=== PATIENT | female | born 1930 | race Caucasian/White ===

== ENCOUNTER 2016-07-17 12:45 | Emergency (ER) | payer BC ==
[2016-07-17 12:58] VITALS: BP 180/112; PULSE 87; TEMP 97.7; BMI 48.9
--- NOTE | 2016-07-17 13:08 | PDOC ---
History of Present Illness - General Chief Complaint: Redness To Affected Area Stated Complaint: FACIAL & SCALP REDNESS Time Seen by Provider: 07/17/16 13:04 History Source: Patient, Old Records Exam Limitations: No Limitations - History of Present Illness Initial Comments: 07/17/16 13:04 85 y/o female with h/o HTN, atrial fibrillation-on anti-coagulation, and ? psoriasis who presents to the ED with complaints of an itching rash on her head and face. The lesion started as a small lesion on the top of her head in January of 2016 and progressively spread to the forehead and including the eyes. The patient has been seen by a game moderator who did a biopsy and prescribed her a cream that improved part of the rash. The patient presents to the ED today because she feels that her eyes are more swollen and the rash is itchier. She denies fevers, chills. There is no change in vision, eye pain. Past History - Past Medical History Allergies/Adverse Reactions: Allergies Allergy/AdvReac Type Severity Reaction Status Date / Time No Known Allergies Allergy Unverified 06/14/12 23:04 Home Medications: Ambulatory Orders Pantoprazole Sodium [Protonix -] 40 mg PO DAILY #0 tablet.ec 06/21/12 Rivaroxaban [Xarelto -] 20 mg PO 1800 #0 tablet 06/21/12 Atorvastatin Ca [Lipitor] 10 mg PO HS 07/17/16 Clindamycin [Cleocin -] 300 mg PO TID #21 capsule 07/17/16 Levothyroxine DAILY 07/17/16 Loratadine [Claritin] 10 mg PO DAILY 07/17/16 Metoprolol Succinate [Toprol Xl] 50 mg PO DAILY 07/17/16 Prednisone [Deltasone -] 40 mg PO UTDICT #8 tablet 07/17/16 Valsartan [Diovan] 80 mg PO BID 07/17/16 Cardiac Disorders: Yes (A-FIB) HTN: Yes Hypercholesterolemia: Yes - Surgical History Abdominal Surgery: Yes (c section x2) - Immunization History Td Vaccination: No - Psycho/Social/Smoking Cessation Hx Anxiety: No Suicidal Ideation: No Smoking Status: No Smoking History: Former smoker Have you smoked in the past 12 months: No Number of Cigarettes Smoked Daily: 0 Information on smoking cessation initiated: No Hx Alcohol Use: No Drug/Substance Use Hx: No Substance Use Type: None Hx Substance Use Treatment: No Review of Systems - Review of Systems Able to Perform ROS?: Yes Is the patient limited Nepali proficient: No Constitutional: No: Symptoms Reported HEENTM: No: Symptoms Reported Respiratory: No: Symptoms reported Cardiac (ROS): No: Symptoms Reported ABD/GI: No: Symptoms Reported : No: Symptoms Reported Musculoskeletal: No: Symptoms Reported Integumentary: Yes: See HPI, Rash *Physical Exam - Vital Signs Last Vital Signs Temp Pulse Resp BP Pulse Ox 97.7 F 87 16 180/112 97 07/17/16 12:47 07/17/16 12:47 07/17/16 12:47 07/17/16 12:47 07/17/16 12:47 - Physical Exam Comments: 07/17/16 13:18 GENERAL: Well developed, well nourished, obese. Awake and alert. No acute distress. HEENT: Normocephalic, atraumatic. PERRLA, EOMI. No conjunctival pallor. Sclera are non- icteric. Moist mucous membranes. Oropharynx is clear. NECK: Supple. Full ROM. No JVD. No lymphadenopathy. CARDIOVASCULAR: Regular rate and rhythm. No murmurs, rubs, or gallops. Distal pulses are 2+ and symmetric. PULMONARY: No evidence of respiratory distress. Lungs clear to auscultation bilaterally. No wheezing, rales or rhonchi. ABDOMINAL: Soft. Non-tender. Non-distended. No rebound or guarding. No organomegaly. Normoactive bowel sounds. MUSCULOSKELETAL Normal range of motion at all joints. No bony deformities or tenderness. No CVA tenderness. EXTREMITIES: No cyanosis. No clubbing. No edema. No calf tenderness. SKIN: Warm and dry. Normal capillary refill. No jaundice. There is a 3 x 4 cm firm lesion to the top of the scalp that appears scabbed and has scaling lesions. There is non-blanching surrounding erythema that extends down to her forehead. There is swelling to her upper and lower eyelids. NEUROLOGICAL: Alert, awake, appropriate. Cranial nerves 2-12 intact. Grossly non-focal exam. ED Treatment Course - LABORATORY CBC & Chemistry Diagram: 07/17/16 13:40 07/17/16 13:40 Medical Decision Making - Medical Decision Making 07/17/16 13:20 85 y/o female with HTN and a-fib with 6-7 month h/o progressively worsening rash to her scalp and face with eyelid swelling. DDx includes but is not limited to: malignancy, psoriasis, superimposed cellulitis, toxic/metabolic derangement. Plan: 1. Labs 2. Benadryl for itching 3. Steroids to decrease inflammation 4. Observe and re-evaluate 07/17/16 14:19 Addendum: The patient is feeling improved. Will treat for cellulitis with clindamycin 300 mg take 1 pill 3 times per day for 7 days. Will also prescribe prednisone for the swelling--40 mg daily for the next 4 days. I have advised the patient to follow-up with her primary care physician Dr. Melton this week. Please return to the emergency department if your symptoms persist, worsen, or new symptoms arise. *DC/Admit/Observation/Transfer Diagnosis at time of Disposition: Rash, Cellulitis, face - Discharge Dispostion Disposition: HOME Condition at time of disposition: Stable Admit: No - Prescriptions Prescriptions: Clindamycin [Cleocin -] 300 mg PO TID #21 capsule Prednisone [Deltasone -] 40 mg PO UTDICT #8 tablet - Referrals Referrals: Jayne Melton MD [Primary Care Provider] - - Patient Instructions Additional Instructions: You are being treated for an infection and an ALLERGIC reaction. You're being prescribed clindamycin 300 mg take 1 pill 3 times per day for 7 days. You're also being prescribed prednisone which is a steroid. Take 40 mg daily for the next 4 days. Please follow-up with your primary care physician Dr. Melton this week. Please return to the emergency department if your symptoms persist, worsen , or new symptoms arise.
[2016-07-17] MEDS ORDERED: CLINDAMYCIN HCL 150 MG CAPSULE (FP) PO ONE (13:23)
[2016-07-17] MEDS ORDERED: predniSONE 20 MG TABLET (UD) PO ONE (13:23)
[2016-07-17] MEDS ORDERED: diphenhydrAMINE HCL 25 MG CAPSULE (FP) PO ONE ×2 (13:23→13:31)
[2016-07-17] MEDS ORDERED: predniSONE 20 MG TABLET (UD) ONE (13:32)
[2016-07-17] MEDS ORDERED: CLINDAMYCIN HCL 150 MG CAPSULE (FP) ONE (13:33)
[2016-07-17 13:57] LABS: BASOPHIL 0.9 % (0-2.0); EOSINOPHIL 3.8 % (0-4.5); MCH 28.7 pg (25.7-33.7); MCHC 32.3 g/dl (32.0-36.0); MEAN CELL VOLUME 88.9 fl (80-96); MEAN PLT VOLUME 9.6 fl (7.5-11.1); NEUTROPHILS 66.6 % (42.8-82.8); PLATELET COUNT 200 K/MM3 (134-434); RDW 14.1 % (11.6-15.6); WHITE BLOOD COUNT 5.6 K/mm3 (4.0-10.8)
[2016-07-17 14:09] LABS: ANION GAP 10 (8-16); CALCIUM 9.8 mg/dl (8.4-10.2); CO2 25 mmol/L (22-28); GLUCOSE,RANDOM 149 mg/dl (74-106); MAGNESIUM 1.6 mg/dL (1.8-2.4)
[2016-07-17 15:08] LABS: ERYTHROCYTE SEDIMENTATION RATE 30 mm/hr (0-30)
== END 2016-07-17 14:29 | disposition home or self-care (01) ==
LOC: FER 12:45
DX: L03.211 Cellulitis of face (principal); I48.91 Unspecified atrial fibrillation; Z79.01 Long term (current) use of anticoagulants; I10 Essential (primary) hypertension; E78.00 Pure hypercholesterolemia, unspecified; Z87.891 Personal history of nicotine dependence
CPT/HCPCS: 36415; 80048; 83735; 84100; 85025; 85651; 99282-25

== ENCOUNTER 2017-05-25 08:50 | Inpatient (IN) | payer BC ==
[2017-05-25 09:47] LABS: BASO % 1.3 % (0-2.0); HEMATOCRIT 14.3 % (32.4-45.2); LYMPH % 16.3 % (8-40); MCH 26.7 pg (25.7-33.7); MCHC 29.5 g/dl (32.0-36.0); MEAN CELL VOLUME 90.4 fl (80-96); MEAN PLT VOLUME 9.2 fl (7.5-11.1); MONO % 11.9 % (3.8-10.2); NEUT % 67.5 % (42.8-82.8); PLATELET COUNT 218 K/MM3 (134-434); RBC 1.58 M/mm3 (3.60-5.2); RDW 22.6 % (11.6-15.6)
[2017-05-25 09:50] LABS: HEMOGLOBIN 4.2 GM/dL (10.7-15.3)
[2017-05-25 10:00] LABS: INR 1.26 (0.82-1.09); PROTHROMBIN TIME (PATIENT) 14.2 SEC (9.98-11.88)
[2017-05-25 10:06] LABS: VENOUS PC02 40.4 mmHg (38-52); VENOUS PH 7.37 (7.32-7.42); VENOUS PO2 21.3 mmHg (28-48)
[2017-05-25 10:16] LABS: ALBUMIN 2.7 g/dl (3.4-5.0); ANION GAP 12 (8-16); BLOOD UREA NITROGEN 31 mg/dL (7-18); CALCIUM 7.9 mg/dL (8.5-10.1); CHLORIDE 111 mmol/L (98-107); CO2 20 mmol/L (21-32); CREATININE 1.1 mg/dL (0.55-1.02); GLUCOSE,RANDOM 100 mg/dL (74-106); POTASSIUM 4.1 mmol/L (3.5-5.1); SGOT/AST 10 U/L (15-37); SGPT/ALT 8 U/L (12-78); SODIUM 143 mmol/L (136-145)
[2017-05-25 10:21] LABS: ALK PHOS 72 U/L (45-117); BILIRUBIN,TOTAL 0.5 mg/dL (0.2-1.0); TOT PROT 5.8 g/dl (6.4-8.2)
--- NOTE | 2017-05-25 10:23 | PDOC ---
History of Present Illness - General History Source: Patient Exam Limitations: No Limitations - History of Present Illness Initial Comments: 05/25/17 10:02 86-year-old female presents to the ED with generalized fatigue, weakness and mild shortness of breath with exertion since yesterday. Patient states has been eating and drinking and moving bowels along with urinating without difficulty but states has had chills also for the past few days. 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 Patient states was unable to make the appointment secondary to symptoms above. Patient states no recent change in diet, weight or medications. Timing/Duration: 24 hours, getting worse Severity: moderate Associated Symptoms: reports: fever/chills (chills), malaise, weakness <Adelina Ramos - Last Filed: 05/25/17 13:01> <Roger Ma - Last Filed: 05/25/17 18:12> - General Chief Complaint: Weakness Stated Complaint: WEAKNESS Time Seen by Provider: 05/25/17 09:13 Past History - Travel Traveled outside of the country in the last 30 days: No - Past Medical History Cancer: Yes (angiosarcoma) Cardiac Disorders: Yes (A-FIB) HTN: Yes Hypercholesterolemia: Yes - Surgical History Abdominal Surgery: Yes (c section x2) - Immunization History Td Vaccination: No - Suicide/Smoking/Psychosocial Hx Smoking Status: No Smoking History: Never smoked Have you smoked in the past 12 months: No Number of Cigarettes Smoked Daily: 0 Information on smoking cessation initiated: No Hx Alcohol Use: No Drug/Substance Use Hx: No Substance Use Type: None Hx Substance Use Treatment: No Patient Lives Alone: No Lives with/in: daughter <Adelina Ramos - Last Filed: 05/25/17 13:01> <Roger Ma - Last Filed: 05/25/17 18:12> - Past Medical History Allergies/Adverse Reactions: Allergies Allergy/AdvReac Type Severity Reaction Status Date / Time No Known Allergies Allergy Verified 05/25/17 09:08 Home Medications: Ambulatory Orders Pantoprazole Sodium [Protonix -] 40 mg PO DAILY #0 tablet.ec 06/21/12 Rivaroxaban [Xarelto -] 20 mg PO 1800 #0 tablet 06/21/12 Atorvastatin Ca [Lipitor] 10 mg PO HS 07/17/16 Levothyroxine 50 mg PO DAILY 07/17/16 Metoprolol Succinate [Toprol Xl] 50 mg PO DAILY 07/17/16 Valsartan [Diovan] 80 mg PO BID 07/17/16 Review of Systems - Review of Systems Able to Perform ROS?: Yes Constitutional: Yes: Weakness HEENTM: No: Symptoms Reported Respiratory: Yes: SOB with Exertion (mild) ABD/GI: Yes: Symptoms Reported. No: Nausea, Poor Fluid Intake, Vomiting, Abdominal cramping Musculoskeletal: No: Symptoms Reported Integumentary: No: Symptoms Reported Neurological: Yes: Weakness Hematologic/Lymphatic: Yes: See HPI <Adelina Ramos - Last Filed: 05/25/17 13:01> *Physical Exam - Vital Signs Last Vital Signs Temp Pulse Resp BP Pulse Ox 98.0 F 79 17 130/50 100 05/25/17 09:14 05/25/17 09:46 05/25/17 09:14 05/25/17 09:14 05/25/17 09:46 - Physical Exam General Appearance: Yes: Nourished, Appropriately Dressed. No: Apparent Distress Neck: positive: Supple. negative: Lymphadenopathy (R), Lymphadenopathy (L) Respiratory/Chest: positive: Lungs Clear, Normal Breath Sounds. negative: Respiratory Distress, Accessory Muscle Use Cardiovascular: positive: Regular Rhythm, Regular Rate. negative: Murmur Gastrointestinal/Abdominal: positive: Soft. negative: Tenderness Extremity: positive: Normal Capillary Refill, Pedal Edema (2+ nonpitting) Integumentary: positive: Dry, Warm, Pale, Other (noted large scaly hyperpigmented skin with scabbing to scalp extending to right eye and forehead. Firm and dry skin to face causing complete closure of right eye. The scalp with scabbing and soft /boggy texture) Neurologic: positive: Normal Mood/Affect, Motor Strength 5/5 <Adelina Ramos - Last Filed: 05/25/17 13:01> - Vital Signs Last Vital Signs Temp Pulse Resp BP Pulse Ox 98.0 F 76 18 118/47 100 05/25/17 11:07 05/25/17 11:07 05/25/17 13:20 05/25/17 11:07 05/25/17 13:20 <Francesca,Roger - Last Filed: 05/25/17 18:12> Heart Score/ECG Review - History History: Slightly suspicious - Electrocardiogram EKG: Normal - Age Age: >/= 65 - Risk Factors Risk Factors Heart Score: Yes Hx Hypertension Based on the list above the patient has:: 1-2 risk factors - Troponin Troponin: </= normal limit - Score Heart Score - Total: 3 - ECG Intrepretation Rhythm: Regular Rhythm (rate 77. Nonspecific ST and T-wave abnormality. No ST elevation or depression.) <Adelina Ramos - Last Filed: 05/25/17 13:01> ED Treatment Course - LABORATORY CBC & Chemistry Diagram: 05/25/17 09:35 05/25/17 09:35 - ADDITIONAL ORDERS Additional order review: 05/25/17 09:35 RBC 1.58 L D MCV 90.4 MCHC 29.5 L RDW 22.6 H D MPV 9.2 Neutrophils % 67.5 Lymphocytes % 16.3 D Monocytes % 11.9 H Eosinophils % 3.0 Basophils % 1.3 D - RADIOLOGY Radiology Studies Ordered: Category Date Time Status CHEST X-RAY PORTABLE* [RAD] Stat Radiology 05/25/17 09:14 Ordered <Adelina Ramos - Last Filed: 05/25/17 13:01> - LABORATORY CBC & Chemistry Diagram: 05/25/17 09:35 05/25/17 09:35 - ADDITIONAL ORDERS Additional order review: Laboratory Results 05/25/17 05/25/17 05/25/17 09:57 09:38 09:35 PT with INR INR VBG pH 7.37 POC VBG pCO2 40.4 POC VBG pO2 21.3 L Mixed VBG HCO3 22.7 Sodium Potassium Chloride Carbon Dioxide Anion Gap BUN Creatinine Creat Clearance w eGFR Random Glucose Lactic Acid 1.7 Calcium Magnesium Total Bilirubin AST ALT Alkaline Phosphatase Creatine Kinase Troponin I Total Protein Albumin Blood Type O POSITIVE Antibody Screen Negative Crossmatch See Detail 05/25/17 05/25/17 09:35 09:35 PT with INR 14.20 H INR 1.26 H D VBG pH POC VBG pCO2 POC VBG pO2 Mixed VBG HCO3 Sodium 143 Potassium 4.1 Chloride 111 H Carbon Dioxide 20 L Anion Gap 12 BUN 31 H Creatinine 1.1 H Creat Clearance w eGFR 47.32 Random Glucose 100 Lactic Acid Calcium 7.9 L Magnesium 2.0 Total Bilirubin 0.5 AST 10 L ALT 8 L Alkaline Phosphatase 72 Creatine Kinase 25 L Troponin I < 0.02 Total Protein 5.8 L Albumin 2.7 L Blood Type Antibody Screen Crossmatch 05/25/17 09:35 RBC 1.58 L D MCV 90.4 MCHC 29.5 L RDW 22.6 H D MPV 9.2 Neutrophils % 67.5 Lymphocytes % 16.3 D Monocytes % 11.9 H Eosinophils % 3.0 Basophils % 1.3 D - Medications Given in the ED: ED Medications Discontinued Medications Generic Name Dose Route Start Last Admin Trade Name Freq PRN Reason Stop Dose Admin Furosemide 40 mg 05/25/17 11:18 05/25/17 14:19 Lasix Injection - IVPUSH 05/25/17 11:19 40 mg ONCE ONE Administration Metoprolol Succinate 50 mg 05/25/17 11:14 05/25/17 11:20 Toprol Xl - PO 05/25/17 11:15 Not Given DAILY ONE <Roger Ma - Last Filed: 05/25/17 18:12> Medical Decision Making - Medical Decision Making 05/25/17 10:14 Patient with complains of generalized fatigue and weakness and exhaustion accompanied mild shortness of breath on exertion. 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 Due to patient's history of present illness and complaints patient will be ruled out for sepsis versus anemia. 05/25/17 12:17 Laboratory Tests 05/25/17 05/25/17 05/25/17 09:35 09:35 09:35 WBC 5.0 D Hgb 4.2 L* D Hct 14.3 L MCV 90.4 MCHC 29.5 L RDW 22.6 H D Plt Count 218 Monocytes % 11.9 H PT with INR 14.20 H INR 1.26 H D VBG pH POC VBG pCO2 POC VBG pO2 Sodium 143 Potassium 4.1 Chloride 111 H Carbon Dioxide 20 L Anion Gap 12 BUN 31 H Creatinine 1.1 H Creat Clearance w eGFR 47.32 Random Glucose 100 Lactic Acid Calcium 7.9 L Magnesium 2.0 AST 10 L ALT 8 L Troponin I < 0.02 Total Protein 5.8 L Albumin 2.7 L 05/25/17 05/25/17 09:35 09:38 WBC Hgb Hct MCV MCHC RDW Plt Count Monocytes % PT with INR INR VBG pH 7.37 POC VBG pCO2 40.4 POC VBG pO2 21.3 L Sodium Potassium Chloride Carbon Dioxide Anion Gap BUN Creatinine Creat Clearance w eGFR Random Glucose Lactic Acid 1.7 Calcium Magnesium AST ALT Troponin I Total Protein Albumin Patient ordered for 1 unit of packed cells and case discussed with Dr. Robb who admitted patient to [facility] inpatient. <Adelina Ramos - Last Filed: 05/25/17 13:01> - Medical Decision Making 05/25/17 18:12 I reviewed the case of the mid-level practitioner and was available for consultation while in the emergency department <Roger Ma - Last Filed: 05/25/17 18:12> *DC/Admit/Observation/Transfer - Discharge Dispostion Admit: Yes <Adelina Ramos - Last Filed: 05/25/17 13:01> <Roger Ma - Last Filed: 05/25/17 18:12> Diagnosis at time of Disposition: Symptomatic anemia, Blood transfusion during current hospitalisation
--- NOTE | 2017-05-25 11:07 | HP ---
Admitting History and Physical - Primary Care Physician PCP: Jayne Melton - Admission Chief Complaint: came in for shortness of breath and fatigue History of Present Illness: today patient was supposed to go to [facility] for chemotherapy but came to ER bc of extreme shortness of breath,fatigue h/h in Er 4.2 History Source: Family Member - Past Medical History Cardiovascular: Yes: AFIB Heme/Onc: Yes: Other (angiosarcoma) Endocrine: Yes: Hypothyroidism - Smoking History Smoking history: Never smoked Have you smoked in the past 12 months: No Aproximately how many cigarettes per day: 0 - Alcohol/Substance Use Hx Alcohol Use: No Home Medications - Allergies Allergies/Adverse Reactions: Allergies Allergy/AdvReac Type Severity Reaction Status Date / Time No Known Allergies Allergy Verified 05/25/17 09:08 - Home Medications Home Medications: Ambulatory Orders Pantoprazole Sodium [Protonix -] 40 mg PO DAILY #0 tablet.ec 06/21/12 Rivaroxaban [Xarelto -] 20 mg PO 1800 #0 tablet 06/21/12 Atorvastatin Ca [Lipitor] 10 mg PO HS 07/17/16 Levothyroxine 50 mg PO DAILY 07/17/16 Metoprolol Succinate [Toprol Xl] 50 mg PO DAILY 07/17/16 Valsartan [Diovan] 80 mg PO BID 07/17/16 Review of Systems - Review of Systems HENT: reports: Other (hard of hearing) Physical Examination Vital Signs: Vital Signs Temperature 98.0 F 05/25/17 09:14 Pulse Rate 79 05/25/17 09:46 Respiratory Rate 17 05/25/17 09:14 Blood Pressure 130/50 05/25/17 09:14 O2 Sat by Pulse Oximetry (%) 100 05/25/17 09:46 Constitutional: Yes: Calm HENT: Yes: Other (periorbital and facial swelling with bluish discoloration eyes closed) Cardiovascular: Yes: Regular Rate and Rhythm, S1, S2 Respiratory: Yes: CTA Bilaterally Gastrointestinal: Yes: Normal Bowel Sounds, Soft Edema: Yes Edema: LLE: 2+, RLE: 2+ Neurological: Yes: Alert, Oriented Labs: CBC, BMP 05/25/17 09:35 05/25/17 09:35 Problem List - Problems (1) Angiosarcoma of face Assessment/Plan: followed at [facility] for chemotherapy Code(s): C49.0 - MALIG NEOPLM OF CONN AND SOFT TISSUE OF HEAD, FACE AND NECK (2) Blood transfusion during current hospitalisation Assessment/Plan: transfuse prbc slowly- will need about 3 units followed by lasix 40mg iv after prbc repeat cbc later today and tmw in AM Code(s): KXN4167 - (3) Symptomatic anemia Assessment/Plan: tranfusion iron panel heme eval Code(s): D64.9 - ANEMIA, UNSPECIFIED (4) Hypothyroid Assessment/Plan: synthroid check tsh Code(s): E03.9 - HYPOTHYROIDISM, UNSPECIFIED (5) Edema Assessment/Plan: lasix check doppler renal/bladder ultrasound Code(s): R60.9 - EDEMA, UNSPECIFIED (6) Atrial fibrillation Assessment/Plan: toprol and xarelto Code(s): I48.91 - UNSPECIFIED ATRIAL FIBRILLATION (7) Renal insufficiency Assessment/Plan: renal and bladder ultrasound lasix Code(s): N28.9 - DISORDER OF KIDNEY AND URETER, UNSPECIFIED
[2017-05-25] MEDS ORDERED: FUROSEMIDE 40 MG/4 ML INJECTABLE VIAL IVPUSH ONE (11:18)
--- NOTE | 2017-05-25 12:37 | EKG ---
Test Reason : Blood Pressure : / mmHG Vent. Rate : 077 BPM Atrial Rate : 077 BPM P-R Int : 000 ms QRS Dur : 094 ms QT Int : 384 ms P-R-T Axes : 000 -04 049 degrees QTc Int : 434 ms POOR DATA QUALITY, INTERPRETATION MAY BE ADVERSELY AFFECTED NORMAL SINUS RHYTHM NONSPECIFIC ST AND T WAVE ABNORMALITY ABNORMAL ECG WHEN COMPARED WITH ECG OF 21-JUN-2012 09:12, JUNCTIONAL RHYTHM HAS REPLACED SINUS RHYTHM QRS DURATION HAS DECREASED NONSPECIFIC T WAVE ABNORMALITY NOW EVIDENT IN INFERIOR LEADS NONSPECIFIC T WAVE ABNORMALITY, WORSE IN LATERAL LEADS Confirmed by MIKEL MENJIVAR MD ([id number]) on 05/25/2017 12:37:28 PM Referred By: Confirmed By:MIKEL MENJIVAR MD
[2017-05-25] MEDS ORDERED: FUROSEMIDE 40 MG/4 ML INJECTABLE VIAL ONE (14:16)
[2017-05-25 16:31] LABS: URINE APPEARANCE SLCLOUDY; URINE BILIRUBIN NEGATIVE (NEGATIVE); URINE BLOOD NEGATIVE (NEGATIVE); URINE COLOR STRAW; URINE GLUCOSE (UA) NEGATIVE (NEGATIVE); URINE KETONE NEGATIVE (NEGATIVE); URINE LEUK ESTERASE 3+ (NEGATIVE); URINE NITRITE NEGATIVE (NEGATIVE); URINE PROTEIN NEGATIVE (NEGATIVE); URINE UROBILINOGEN NEGATIVE mg/dL (0.2-1.0)
--- NOTE | 2017-05-25 16:49 | CONSULT ---
Consult Consult Specialty:: Anemia - History of Present Illness History of Present Illness: Presented with fatigue and SOB. Hx of angiosarcoma. f/u at [facility] diagnosed in 05/2016 s/p multiple regimens ( doxil, sorafenib, Taxol and again doxil). Today, scheduled for Keytruda. and the plan for concurrent Immuno/Radiotherapy - History Source History Provided By: Family Member - Past Medical History Cardio/Vascular: Yes: AFIB Endocrine: Yes: Hypothyroidism - Alcohol/Substance Use Hx Alcohol Use: No - Smoking History Smoking history: Never smoked Have you smoked in the past 12 months: No Aproximately how many cigarettes per day: 0 Home Medications - Allergies Allergies/Adverse Reactions: Allergies Allergy/AdvReac Type Severity Reaction Status Date / Time No Known Allergies Allergy Verified 05/25/17 09:08 - Home Medications Home Medications: Ambulatory Orders Pantoprazole Sodium [Protonix -] 40 mg PO DAILY #0 tablet.ec 06/21/12 Rivaroxaban [Xarelto -] 20 mg PO 1800 #0 tablet 06/21/12 Atorvastatin Ca [Lipitor] 10 mg PO HS 07/17/16 Levothyroxine 50 mg PO DAILY 07/17/16 Metoprolol Succinate [Toprol Xl] 50 mg PO DAILY 07/17/16 Valsartan [Diovan] 80 mg PO BID 07/17/16 Physical Exam Vital Signs: Vital Signs Temperature 98.0 F 05/25/17 11:07 Pulse Rate 76 05/25/17 11:07 Respiratory Rate 18 05/25/17 11:07 Blood Pressure 118/47 05/25/17 11:07 O2 Sat by Pulse Oximetry (%) 100 05/25/17 11:07 Constitutional: Yes: No Distress Eyes: Yes: Conjunctiva Clear HENT: Yes: Atraumatic, Other (huge sarcomatous lesion is) Neck: Yes: Supple, Trachea Midline Cardiovascular: Yes: Regular Rate and Rhythm Respiratory: Yes: Regular, CTA Bilaterally Gastrointestinal: Yes: Normal Bowel Sounds, Soft Labs: CBC, BMP 05/25/17 09:35 05/25/17 09:35 Assessment/Plan Angiosarcoma ( type unknown) multiple chemotherapies prior to start Keytruda today Now being admitted for symptomatic anemia. She undergoes intermittent PRBCs at her Oncologist office in [place]. transfuse prbc directed by CBC. once hgb stabilized, likely could be discharged to continue f/u at [place]/ [facility] will follow
[2017-05-25 17:47] LABS: EPI CELLS RARE /HPF (FEW); URINE HYALINE CAST 2 /lpf
[2017-05-25] MEDS: RIVAROXABAN 20 MG TABLET PO SCH (18:38)
[2017-05-25 18:51] VITALS: BMI 44.3
[2017-05-25] MEDS ORDERED: INSULIN (NOVOLOG) ASPART 100 UNITS/ML 10ML VIAL ONE (19:20)
[2017-05-25 20:55] LABS: BASO % 0.8 % (0-2.0); EOS % 1.6 % (0-4.5); HEMATOCRIT 16.3 % (32.4-45.2); LYMPH % 10.5 % (8-40); MCH 26.3 pg (25.7-33.7); MCHC 30.6 g/dl (32.0-36.0); MEAN PLT VOLUME 9.4 fl (7.5-11.1); MONO % 9.9 % (3.8-10.2); NEUT % 77.2 % (42.8-82.8); PLATELET COUNT 217 K/MM3 (134-434); RDW 22.8 % (11.6-15.6); WHITE BLOOD COUNT 6.8 K/mm3 (4.0-10.0)
[2017-05-25] MEDS ORDERED: FUROSEMIDE 40 MG/4 ML INJECTABLE VIAL IVPUSH SCH (21:06)
[2017-05-25] MEDS: ATORVASTATIN CA 10 MG TABLET (FP) PO SCH (21:42)
[2017-05-26] MEDS ORDERED: FUROSEMIDE 40 MG/4 ML INJECTABLE VIAL IVPUSH ONE (03:30)
[2017-05-26] MEDS: LEVOTHYROXINE NA 50 MCG TABLET (FP) PO SCH (06:11)
--- NOTE | 2017-05-26 09:50 | PN ---
Physical Exam: SUBJECTIVE: Patient seen and examined. She is comfortable sitting in chair. She has no complaints. She denies CP, SOB. OBJECTIVE: Vital Signs Period Temp Pulse Resp BP Sys/Puente Pulse Ox Last 24 Hr 97.1 F-98.0 F 76-98 18-20 118-149/41-71 96-100 GENERAL: The patient is awake, alert, and fully oriented, in no acute distress. LUNGS: Breath sounds equal, clear to auscultation bilaterally, no wheezes, no crackles, no accessory muscle use. HEART: Regular rate and rhythm, S1, S2 without murmur, rub or gallop. ABDOMEN: Obese, soft, nontender, nondistended, normoactive bowel sounds, no guarding, no rebound, no hepatosplenomegaly, no masses. EXTREMITIES: 2+ edema. Laboratory Results - last 24 hr 05/25/17 05/25/17 05/25/17 09:35 09:35 09:35 WBC 5.0 D RBC 1.58 L D Hgb 4.2 L* D Hct 14.3 L MCV 90.4 MCH 26.7 D MCHC 29.5 L RDW 22.6 H D Plt Count 218 MPV 9.2 Neutrophils % 67.5 Lymphocytes % 16.3 D Monocytes % 11.9 H Eosinophils % 3.0 Basophils % 1.3 D PT with INR 14.20 H INR 1.26 H D VBG pH POC VBG pCO2 POC VBG pO2 Mixed VBG HCO3 Sodium 143 Potassium 4.1 Chloride 111 H Carbon Dioxide 20 L Anion Gap 12 BUN 31 H Creatinine 1.1 H Creat Clearance w eGFR 47.32 Random Glucose 100 Lactic Acid Calcium 7.9 L Magnesium 2.0 Total Bilirubin 0.5 AST 10 L ALT 8 L Alkaline Phosphatase 72 Creatine Kinase 25 L Troponin I < 0.02 Total Protein 5.8 L Albumin 2.7 L Urine Color Urine Appearance Urine pH Ur Specific [place] Urine Protein Urine Glucose (UA) Urine Ketones Urine Blood Urine Nitrite Urine Bilirubin Urine Urobilinogen Ur Leukocyte Esterase Urine WBC (Auto) Urine RBC (Auto) Ur Epithelial Cells Hyaline Casts Blood Type Antibody Screen Crossmatch 05/25/17 05/25/17 05/25/17 09:35 09:38 09:57 WBC RBC Hgb Hct MCV MCH MCHC RDW Plt Count MPV Neutrophils % Lymphocytes % Monocytes % Eosinophils % Basophils % PT with INR INR VBG pH 7.37 POC VBG pCO2 40.4 POC VBG pO2 21.3 L Mixed VBG HCO3 22.7 Sodium Potassium Chloride Carbon Dioxide Anion Gap BUN Creatinine Creat Clearance w eGFR Random Glucose Lactic Acid 1.7 Calcium Magnesium Total Bilirubin AST ALT Alkaline Phosphatase Creatine Kinase Troponin I Total Protein Albumin Urine Color Urine Appearance Urine pH Ur Specific [place] Urine Protein Urine Glucose (UA) Urine Ketones Urine Blood Urine Nitrite Urine Bilirubin Urine Urobilinogen Ur Leukocyte Esterase Urine WBC (Auto) Urine RBC (Auto) Ur Epithelial Cells Hyaline Casts Blood Type O POSITIVE Antibody Screen Negative Crossmatch See Detail 05/25/17 05/25/17 05/25/17 15:46 19:50 23:00 WBC 6.8 D RBC 1.90 L D Hgb 5.0 L* D Hct 16.3 L MCV 86.0 MCH 26.3 MCHC 30.6 L RDW 22.8 H Plt Count 217 MPV 9.4 Neutrophils % 77.2 Lymphocytes % 10.5 D Monocytes % 9.9 Eosinophils % 1.6 Basophils % 0.8 PT with INR INR VBG pH POC VBG pCO2 POC VBG pO2 Mixed VBG HCO3 Sodium Potassium Chloride Carbon Dioxide Anion Gap BUN Creatinine Creat Clearance w eGFR Random Glucose Lactic Acid Calcium Magnesium Total Bilirubin AST ALT Alkaline Phosphatase Creatine Kinase Troponin I Total Protein Albumin Urine Color Straw Urine Appearance Slcloudy Urine pH 5.0 Ur Specific [place] 1.006 Urine Protein Negative Urine Glucose (UA) Negative Urine Ketones Negative Urine Blood Negative Urine Nitrite Negative Urine Bilirubin Negative Urine Urobilinogen Negative Ur Leukocyte Esterase 3+ H Urine WBC (Auto) 116 Urine RBC (Auto) 3 Ur Epithelial Cells Rare Hyaline Casts 2 Blood Type O POSITIVE Antibody Screen Negative Crossmatch Active Medications Generic Name Dose Route Start Last Admin Trade Name Freq PRN Reason Stop Dose Admin Atorvastatin Calcium 10 mg 05/25/17 22:00 05/25/17 21:42 Lipitor - PO 10 mg HS LENORA Administration Levothyroxine Sodium 50 mcg 05/26/17 07:00 05/26/17 06:11 Synthroid - PO 50 mcg DAILY@0700 LENORA Administration Metoprolol Succinate 50 mg 05/26/17 10:00 Toprol Xl - PO DAILY LENORA Pantoprazole Sodium 40 mg 05/26/17 10:00 Protonix - PO DAILY LENORA Rivaroxaban 20 mg 05/25/17 18:00 05/25/17 18:38 Xarelto - PO 20 mg DAILY@1800 LENORA Administration ASSESSMENT/PLAN: 1. 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 Hypothyroidism - Continue Synthroid 4. Bilateral leg edema - Given Lasix - Venous dopplers of legs ordered 5. History of atrial fibrillation - Currently in sinuns rhythm - Continue Toprol XL, Xarelto 6. Stage 3 CKD - Creatinine 1.1 yesterday (1.0 07/2016) 7. HTN - Continue Toprol XL 8. Hyperlipidemia - Continue Lipitor Visit type - Emergency Visit Emergency Visit: Yes ED Registration Date: 05/25/17 Care time: The patient presented to the Emergency Department on the above date and was hospitalized for further evaluation of their emergent condition. - New Patient This patient is new to me today: Yes Date on this admission: 05/26/17 - Critical Care Critical Care patient: No - Discharge Referral Referred to [facility] Med P.C.: No
[2017-05-26] MEDS: PANTOPRAZOLE 40 MG TABLET (FP) PO SCH (10:32)
[2017-05-26 10:43] LABS: BASO % 0.9 % (0-2.0); EOS % 1.1 % (0-4.5); HEMATOCRIT 22.9 % (32.4-45.2); HEMOGLOBIN 7.4 GM/dL (10.7-15.3); LYMPH % 9.7 % (8-40); MCH 27.5 pg (25.7-33.7); MCHC 32.2 g/dl (32.0-36.0); MEAN CELL VOLUME 85.5 fl (80-96); MEAN PLT VOLUME 9.5 fl (7.5-11.1); MONO % 11.7 % (3.8-10.2); NEUT % 76.6 % (42.8-82.8); PLATELET COUNT 226 K/MM3 (134-434); RBC 2.68 M/mm3 (3.60-5.2); WHITE BLOOD COUNT 8.2 K/mm3 (4.0-10.0)
[2017-05-26 11:05] LABS: ANION GAP 10 (8-16); BLOOD UREA NITROGEN 29 mg/dL (7-18); CALCIUM 8.4 mg/dL (8.5-10.1); CHLORIDE 107 mmol/L (98-107); CHOLESTEROL 81 mg/dL (50-200); CO2 24 mmol/L (21-32); CREATININE 1.2 mg/dL (0.55-1.02); GLUCOSE,RANDOM 109 mg/dL (74-106); HDL CHOLESTEROL 32 mg/dL (40-60); LDL CHOLESTEROL (ONLY SJRH) 41 mg/dL (5-100); MAGNESIUM 1.6 mg/dL (1.8-2.4); PHOSPHOROUS 3.3 mg/dL (2.5-4.9); SGOT/AST 9 U/L (15-37); SGPT/ALT 8 U/L (12-78); SODIUM 141 mmol/L (136-145); TRIGLYCERIDES 130 mg/dL (35-160)
[2017-05-26 11:15] LABS: ALK PHOS 75 U/L (45-117); BILIRUBIN,TOTAL 1.1 mg/dL (0.2-1.0)
--- NOTE | 2017-05-26 17:12 | PN ---
Progress Note (short form) - Note Progress Note: patient seen and examined denies any complaints Last Vital Signs Temp Pulse Resp BP Pulse Ox 97.7 F 83 20 118/45 96 05/26/17 20:00 05/26/17 20:00 05/26/17 20:00 05/26/17 20:00 05/26/17 13:59 Cor: RSR, No murmurs, No gallops Lungs: Clear to P&A Abd: Soft, Normal bowel sounds, No organomegaly Ext:No significant edema Abnormal Lab Results 05/25/17 05/26/17 05/26/17 09:57 10:01 10:01 RBC 2.68 L D Hgb 7.4 L D Hct 2 Meal intake past 72 hours Breakfast 50% Lunch 50% Supper 25% Supper 50% a2.9 L D RDW 19.0 H D Monocytes % 11.7 H BUN 29 H Creatinine 1.2 H Random Glucose 109 H Calcium 8.4 L Magnesium 1.6 L Total Bilirubin 1.1 H D AST 9 L ALT 8 L Total Protein 6.0 L Albumin 3.0 L HDL Cholesterol Crossmatch See Detail 05/26/17 10:01 RBC Hgb Hct RDW Monocytes % BUN Creatinine Random Glucose Calcium Magnesium Total Bilirubin AST ALT Total Protein Albumin HDL Cholesterol 32 L Crossmatch a/p 86 y/o Angiosarcoma multiple chemotherapies prior to start Keytruda Now being admitted for symptomatic anemia. She undergoes intermittent PRBCs at her Oncologist office in [place]. transfuse prbc directed by CBC. once hgb stabilized, likely could be discharged to continue f/u at [place]/ [facility] patient interested in transferring care locally ---contact nos. given
[2017-05-26] MEDS: RIVAROXABAN 20 MG TABLET PO SCH (18:18)
[2017-05-26] MEDS: ATORVASTATIN CA 10 MG TABLET (FP) PO SCH (21:15)
[2017-05-27] MEDS: LEVOTHYROXINE NA 50 MCG TABLET (FP) PO SCH (06:18)
[2017-05-27 08:06] LABS: SERUM IRON SATURATION 15 % (15-55); TOTAL IRON BINDING CAPACITY 369 ug/dL (250-450); UIBC 312 ug/dL (118-369)
[2017-05-27 08:18] LABS: CHLORIDE 108 mmol/L (98-107); POTASSIUM 3.7 mmol/L (3.5-5.1); SODIUM 141 mmol/L (136-145)
[2017-05-27 08:23] LABS: BASO % 0.7 % (0-2.0); EOS % 1.3 % (0-4.5); HEMATOCRIT 20.2 % (32.4-45.2); LYMPH % 9.9 % (8-40); MCH 27.8 pg (25.7-33.7); MCHC 32.4 g/dl (32.0-36.0); MEAN CELL VOLUME 85.9 fl (80-96); NEUT % 77.1 % (42.8-82.8); PLATELET COUNT 157 K/MM3 (134-434); RBC 2.36 M/mm3 (3.60-5.2); RDW 18.5 % (11.6-15.6); WHITE BLOOD COUNT 6.9 K/mm3 (4.0-10.0)
[2017-05-27 08:28] LABS: ANION GAP 7 (8-16); BLOOD UREA NITROGEN 27 mg/dL (7-18); CALCIUM 8.2 mg/dL (8.5-10.1); CO2 26 mmol/L (21-32); CREATININE 1.1 mg/dL (0.55-1.02); GLUCOSE,RANDOM 110 mg/dL (74-106)
[2017-05-27 08:35] LABS: ADD RBC MORPHOLOGY YES; HEMOGLOBIN 6.6 GM/dL (10.7-15.3)
--- NOTE | 2017-05-27 09:51 | PN ---
Physical Exam: SUBJECTIVE: Patient seen and examined. She is comfortable. She is agitated at times. OBJECTIVE: Vital Signs Period Temp Pulse Resp BP Sys/Puente Pulse Ox Last 24 Hr 97.4 F-98.4 F 77-89 20-20 117-136/45-75 96-96 GENERAL: The patient is awake, alert, and fully oriented, in no acute distress. LUNGS: Breath sounds equal, clear to auscultation bilaterally, no wheezes, no crackles, no accessory muscle use. HEART: Regular rate and rhythm, S1, S2 without murmur, rub or gallop. ABDOMEN: Obese, soft, nontender, nondistended, normoactive bowel sounds, no guarding, no rebound, no hepatosplenomegaly, no masses. EXTREMITIES: 2+ edema. Laboratory Results - last 24 hr 05/26/17 05/26/17 05/26/17 10:01 10:01 10:01 WBC 8.2 RBC 2.68 L D Hgb 7.4 L D Hct 22.9 L D MCV 85.5 MCH 27.5 MCHC 32.2 RDW 19.0 H D Plt Count 226 MPV 9.5 Neutrophils % 76.6 Lymphocytes % 9.7 Monocytes % 11.7 H Eosinophils % 1.1 Basophils % 0.9 Sodium 141 Potassium 4.0 Chloride 107 Carbon Dioxide 24 Anion Gap 10 BUN 29 H Creatinine 1.2 H Creat Clearance w eGFR 42.80 Random Glucose 109 H Calcium 8.4 L Phosphorus 3.3 Magnesium 1.6 L Iron TIBC Iron Saturation Ferritin Total Bilirubin 1.1 H D AST 9 L ALT 8 L Alkaline Phosphatase 75 Total Protein 6.0 L Albumin 3.0 L Triglycerides 130 Cholesterol 81 Total LDL Cholesterol 41 HDL Cholesterol 32 L Vitamin B12 Serum Folate 7 TSH 1.29 05/26/17 05/26/17 05/27/17 10:01 10:01 06:18 WBC 6.9 RBC 2.36 L Hgb 6.6 L* D Hct 20.2 L MCV 85.9 MCH 27.8 MCHC 32.4 RDW 18.5 H Plt Count 157 D MPV 9.0 Neutrophils % 77.1 Lymphocytes % 9.9 Monocytes % 11.0 H Eosinophils % 1.3 Basophils % 0.7 Sodium Potassium Chloride Carbon Dioxide Anion Gap BUN Creatinine Creat Clearance w eGFR Random Glucose Calcium Phosphorus Magnesium Iron 57 TIBC 369 Iron Saturation 15 Ferritin 17.267 Total Bilirubin AST ALT Alkaline Phosphatase Total Protein Albumin Triglycerides Cholesterol Total LDL Cholesterol HDL Cholesterol Vitamin B12 560 Serum Folate TSH 05/27/17 06:18 WBC RBC Hgb Hct MCV MCH MCHC RDW Plt Count MPV Neutrophils % Lymphocytes % Monocytes % Eosinophils % Basophils % Sodium 141 Potassium 3.7 Chloride 108 H Carbon Dioxide 26 Anion Gap 7 L BUN 27 H Creatinine 1.1 H Creat Clearance w eGFR Random Glucose 110 H Calcium 8.2 L Phosphorus Magnesium Iron TIBC Iron Saturation Ferritin Total Bilirubin AST ALT Alkaline Phosphatase Total Protein Albumin Triglycerides Cholesterol Total LDL Cholesterol HDL Cholesterol Vitamin B12 Serum Folate TSH Active Medications Generic Name Dose Route Start Last Admin Trade Name Freq PRN Reason Stop Dose Admin Atorvastatin Calcium 10 mg 05/25/17 22:00 05/26/17 21:15 Lipitor - PO 10 mg HS LENORA Administration Levothyroxine Sodium 50 mcg 05/26/17 07:00 05/27/17 06:18 Synthroid - PO 50 mcg DAILY@0700 LENORA Administration Metoprolol Succinate 50 mg 05/26/17 10:00 05/26/17 10:32 Toprol Xl - PO 50 mg DAILY LENORA Administration Pantoprazole Sodium 40 mg 05/26/17 10:00 05/26/17 10:32 Protonix - PO 40 mg DAILY LENORA Administration Rivaroxaban 20 mg 05/25/17 18:00 05/26/17 18:18 Xarelto - PO 20 mg DAILY@1800 LENORA Administration ASSESSMENT/PLAN: 1. 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 Hypothyroidism - Continue Synthroid 4. Bilateral leg edema - Given Lasix - Venous dopplers of legs ordered 5. History of atrial fibrillation - Currently in sinuns rhythm - Continue Toprol XL, Xarelto 6. Stage 3 CKD 7. HTN - Continue Toprol XL 8. Hyperlipidemia - Continue Lipitor Visit type - Emergency Visit Emergency Visit: Yes ED Registration Date: 05/27/17 Care time: The patient presented to the Emergency Department on the above date and was hospitalized for further evaluation of their emergent condition. - New Patient This patient is new to me today: No - Critical Care Critical Care patient: No - Discharge Referral Referred to [facility] Med P.C.: No
[2017-05-27] MEDS: PANTOPRAZOLE 40 MG TABLET (FP) PO SCH (10:16)
[2017-05-27 10:59] LABS: ANISOCYTOSIS 2+
[2017-05-27 11:00] LABS: PLATELET ESTIMATE ADEQUATE
[2017-05-27] MEDS: RIVAROXABAN 20 MG TABLET PO SCH (18:15)
[2017-05-27] MEDS: ATORVASTATIN CA 10 MG TABLET (FP) PO SCH (21:18)
[2017-05-28] MEDS: LEVOTHYROXINE NA 50 MCG TABLET (FP) PO SCH (06:06)
[2017-05-28 07:55] LABS: BASO % 1.4 % (0-2.0); EOS % 2.7 % (0-4.5); HEMATOCRIT 21.8 % (32.4-45.2); HEMOGLOBIN 7.1 GM/dL (10.7-15.3); LYMPH % 17.8 % (8-40); MCH 28.3 pg (25.7-33.7); MCHC 32.7 g/dl (32.0-36.0); MEAN CELL VOLUME 86.5 fl (80-96); MEAN PLT VOLUME 9.1 fl (7.5-11.1); MONO % 12.5 % (3.8-10.2); NEUT % 65.6 % (42.8-82.8); PLATELET COUNT 133 K/MM3 (134-434); RBC 2.52 M/mm3 (3.60-5.2); RDW 17.9 % (11.6-15.6); WHITE BLOOD COUNT 4.8 K/mm3 (4.0-10.0)
[2017-05-28 08:11] LABS: ANION GAP 6 (8-16); BLOOD UREA NITROGEN 20 mg/dL (7-18); CALCIUM 7.7 mg/dL (8.5-10.1); CHLORIDE 110 mmol/L (98-107); CO2 27 mmol/L (21-32); GLUCOSE,RANDOM 92 mg/dL (74-106); POTASSIUM 3.8 mmol/L (3.5-5.1); SODIUM 143 mmol/L (136-145)
[2017-05-28 08:13] LABS: CREATININE 0.9 mg/dL (0.55-1.02)
[2017-05-28] MEDS: PANTOPRAZOLE 40 MG TABLET (FP) PO SCH (09:05)
[2017-05-28] MEDS: RIVAROXABAN 20 MG TABLET PO SCH (17:03)
--- NOTE | 2017-05-28 18:37 | PN ---
Physical Exam: SUBJECTIVE: Patient seen and examined. She has no comaplints. OBJECTIVE: Vital Signs Period Temp Pulse Resp BP Sys/Puente Pulse Ox Last 24 Hr 97.6 F-98.0 F 84-99 18-20 124-153/48-92 96-97 GENERAL: The patient is awake, alert, and fully oriented, in no acute distress. LUNGS: Breath sounds equal, clear to auscultation bilaterally, no wheezes, no crackles, no accessory muscle use. HEART: Regular rate and rhythm, S1, S2 without murmur, rub or gallop. ABDOMEN: Obese, soft, nontender, nondistended, normoactive bowel sounds, no guarding, no rebound, no hepatosplenomegaly, no masses. EXTREMITIES: 2+ edema. Laboratory Results - last 24 hr 05/25/17 05/25/17 05/28/17 09:57 23:00 06:35 WBC 4.8 D RBC 2.52 L Hgb 7.1 L Hct 21.8 L MCV 86.5 MCH 28.3 MCHC 32.7 RDW 17.9 H Plt Count 133 L MPV 9.1 Neutrophils % 65.6 Lymphocytes % 17.8 D Monocytes % 12.5 H Eosinophils % 2.7 D Basophils % 1.4 Sodium Potassium Chloride Carbon Dioxide Anion Gap BUN Creatinine Random Glucose Calcium Blood Type O POSITIVE O POSITIVE Antibody Screen Negative Negative Crossmatch See Detail See Detail 05/28/17 06:35 WBC RBC Hgb Hct MCV MCH MCHC RDW Plt Count MPV Neutrophils % Lymphocytes % Monocytes % Eosinophils % Basophils % Sodium 143 Potassium 3.8 Chloride 110 H Carbon Dioxide 27 Anion Gap 6 L BUN 20 H Creatinine 0.9 Random Glucose 92 Calcium 7.7 L Blood Type Antibody Screen Crossmatch Active Medications Generic Name Dose Route Start Last Admin Trade Name Freq PRN Reason Stop Dose Admin Atorvastatin Calcium 10 mg 05/25/17 22:00 05/27/17 21:18 Lipitor - PO Not Given HS LENORA Levothyroxine Sodium 50 mcg 05/26/17 07:00 05/28/17 06:06 Synthroid - PO Not Given DAILY@0700 LENORA Metoprolol Succinate 50 mg 05/26/17 10:00 05/28/17 09:05 Toprol Xl - PO 50 mg DAILY LENORA Administration Pantoprazole Sodium 40 mg 05/26/17 10:00 05/28/17 09:05 Protonix - PO 40 mg DAILY LENORA Administration Rivaroxaban 20 mg 05/25/17 18:00 05/28/17 17:03 Xarelto - PO 20 mg DAILY@1800 LENORA Administration ASSESSMENT/PLAN: 1. 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 Hypothyroidism - Continue Synthroid 4. Bilateral leg edema - Given Lasix - Refusing venous dopplers of legs 5. History of atrial fibrillation - Currently in sinuns rhythm - Continue Toprol XL, Xarelto 6. Stage 3 CKD 7. HTN - Continue Toprol XL 8. Hyperlipidemia - Continue Lipitor Visit type - Emergency Visit Emergency Visit: Yes ED Registration Date: 05/27/17 Care time: The patient presented to the Emergency Department on the above date and was hospitalized for further evaluation of their emergent condition. - New Patient This patient is new to me today: No - Critical Care Critical Care patient: No - Discharge Referral Referred to [facility] Med P.C.: No
[2017-05-28] MEDS: ATORVASTATIN CA 10 MG TABLET (FP) PO SCH (22:12)
[2017-05-29] MEDS: LEVOTHYROXINE NA 50 MCG TABLET (FP) PO SCH (06:01)
[2017-05-29 10:34] LABS: HEMATOCRIT 27.1 % (32.4-45.2); HEMOGLOBIN 8.9 GM/dL (10.7-15.3); MCH 28.9 pg (25.7-33.7); MEAN CELL VOLUME 87.4 fl (80-96); MEAN PLT VOLUME 9.4 fl (7.5-11.1); PLATELET COUNT 157 K/MM3 (134-434); WHITE BLOOD COUNT 9.3 K/mm3 (4.0-10.0)
[2017-05-29] MEDS: PANTOPRAZOLE 40 MG TABLET (FP) PO SCH ×2 (10:49→10:52)
[2017-05-29 13:26] VITALS: BP 128/61; PULSE 91; TEMP 97.4
--- NOTE | 2017-05-29 14:28 | DS ---
Physical Examination Vital Signs: Vital Signs Temperature 97.4 F L 05/29/17 13:24 Pulse Rate 91 H 05/29/17 13:24 Respiratory Rate 18 05/29/17 13:24 Blood Pressure 128/61 05/29/17 13:24 O2 Sat by Pulse Oximetry (%) 96 05/28/17 20:35 Thania F with heard of hearing HEENT: extensive facial lesiobn of angiosacrmoa oozing serous fluid HEENT: Mm moist, mild anemia NECK; No JVd No bruit CHEST: CTA B/L CVs; s1S2 IR no m/g/r EXT: B/L jassi afeet FUR SCRAPER: Non focal Labs: CBC, BMP 05/29/17 09:48 05/28/17 06:35 Discharge Summary Reason For Visit: SECONDARY ANEMIA Current Active Problems Blood transfusion during current hospitalisation (Acute) Symptomatic anemia (Acute) Angiosarcoma of face (Chronic) Atrial fibrillation (Chronic) Edema (Chronic) Hyperlipidemia (Chronic) Hypertension (Chronic) Hypothyroid (Chronic) Stage 3 chronic kidney disease (Chronic) Hospital Course: 86 yrs old F with H/O HTN, Hypothyroidism, Afib on Xarelyto rate controlled, extensive Facial Angiosacrcoam getting treated at [facility] , admitted with generalised sever symptomatic anemia w/u shows sever symptomatic anemia H/H 4.2 /14 recived 4 units PRBC H/H improved to 8.9/ evaluated by Oncology service recommonded Dc after blood transfusion once H/H is stable, patient will be Dc Home on her home meds F/U ozzy CHONG and his Oncologist Condition: Fair - Instructions Diet, Activity, Other Instructions: As advised Referrals: Jayne Melton MD [Primary Care Provider] - 1 Week Disposition: HOME - Home Medications Comprehensive Discharge Medication List: Ambulatory Orders Pantoprazole Sodium [Protonix -] 40 mg PO DAILY #0 tablet.ec 06/21/12 Rivaroxaban [Xarelto -] 20 mg PO 1800 #0 tablet 06/21/12 Atorvastatin Ca [Lipitor] 10 mg PO HS 07/17/16 Metoprolol Succinate [Toprol Xl] 50 mg PO DAILY 07/17/16 Valsartan [Diovan] 80 mg PO BID 07/17/16 Levothyroxine [Synthroid -] 50 mcg PO DAILY@0700 tablet 05/26/17
== END 2017-05-29 16:00 | disposition home or self-care (01) | DRG 543 ==
LOC: JER 08:50 → INTOOBSV 10:24 → UNDOADMOB 10:24 → JERBED 10:24 → J7W 18:10 → JERBED 18:10 → J7W 18:10 → OBSVTOIN 05-27 14:19
PROVIDERS: ADMIT Student in an Organized Health Care Education/Training Program; ATTEND Internal Medicine
PROC: 30233N1 Transfusion of Nonautologous Red Blood Cells into Peripheral Vein, Percutaneous Approach (ICD-10-PCS; principal; 2017-05-25)
DX: C49.0 Malignant neoplasm of connective and soft tissue of head, face and neck (principal); Z68.41 Body mass index [BMI] 40.0-44.9, adult; E03.9 Hypothyroidism, unspecified; N28.9 Disorder of kidney and ureter, unspecified; I12.9 Hypertensive chronic kidney disease with stage 1 through stage 4 chronic kidney disease, or unspecified chronic kidney disease; N18.3 Chronic kidney disease, stage 3 (moderate); E78.5 Hyperlipidemia, unspecified; I48.2 Chronic atrial fibrillation; E66.01 Morbid (severe) obesity due to excess calories; D63.0 Anemia in neoplastic disease
CPT/HCPCS: 36415; 36430; 71045-TC-FY; 76775-TC; 76856-TC; 80048; 80053; 80061; 81003; 81015; 82550; 82607; 82728; 82746; 82803; 83540; 83550; 83605; 83721; 83735; 84100; 84443; 84484; 85025; 85027; 85610; 86850; 86900; 86901; 86922; 87040; 87086; 93005; 93010; 99285-25; G0378; P9038; P9058